=== PATIENT | female | born 1990 | race Caucasian/White ===

== ENCOUNTER 2017-03-05 23:27 | Emergency (ER) | payer SELFPAY ==
[~2017-03-05] VITALS: Ht 160 cm; Wt 68.0 kg
[2017-03-06] MEDS ORDERED: IBUPROFEN600 MG ORAL (00:05)
--- NOTE | 2017-03-06 00:06 | Emergency Room Report ---
History of Present Illness General Chief Complaint: Pain Source: Patient, EMS Present Illness HPI Is a 27-year-old female who is homeless. She presents with bilateral feet and leg pain. She said she been walking a lot and is hurting. Denies any fever chills denies any nausea vomiting. The paramedics it took her in today he said that he picked her up 2 days ago from [facility] for similar complaint. Patient denies any trauma. Denies any fever chills denies any nausea vomiting. She said that she is not . Allergies: Coded Allergies: No Known Allergies (Unverified , 03/05/17) Patient History Past Medical History: see triage record, old chart reviewed Past Surgical History: none Pertinent Family History: none Social History: Reports: smoking Last Menstrual Period: "2 months ago" Now: No Immunizations: other Reviewed Nursing Documentation: PMH: Agreed, PSxH: Agreed Nursing Documentation-PMH Past Medical History: No Stated History Review of Systems Eye: Denies: blurred vision, eye pain ENT: Denies: ear pain, nose congestion, throat swelling Respiratory: Denies: cough, shortness of breath Cardiovascular: Denies: chest pain, palpitations Gastrointestinal: Denies: abdominal pain, diarrhea, nausea, vomiting Musculoskeletal: Denies: back pain, joint pain Skin: Denies: rash Neurological: Denies: headache, numbness Endocrine: Denies: increased thirst, increased urine Hematologic/Lymphatic: Denies: easy bruising All Other Systems: negative except mentioned in HPI Physical Exam Vital Signs Date Time Temp Pulse Resp B/P Pulse Ox O2 Delivery O2 Flow Rate FiO2 03/05/17 23:25 97.5 73 16 108/65 98 Room Air vitals normal Sp02 EP Interpretation: reviewed, normal General Appearance: well appearing, no apparent distress, alert Head: normocephalic, atraumatic Eyes: bilateral eye EOMI, bilateral eye PERRL ENT: hearing grossly normal, normal pharynx Neck: full range of motion, supple, no meningismus Respiratory: chest non-tender, lungs clear, normal breath sounds Cardiovascular #1: regular rate, rhythm, no murmur Gastrointestinal: normal bowel sounds, non tender, no mass, no organomegaly, no bruit, non-distended Musculoskeletal: back normal, gait/station normal, normal range of motion Psychiatric: mood/affect normal Skin: warm/dry Medical Decision Making Diagnostic Impression: Primary Impression: Lower extremity pain, bilateral ER Course Patient presents with bilateral leg pain. She does want a place to sleep. I see no trauma. There is no evidence of infection. She's not having any pain when I palpate her lower extremity. No evidence of edema. No evidence of DVT. We'll discharge home. She does not want social service consult. She does not want to go to a custodial. Last Vital Signs Date Time Temp Pulse Resp B/P Pulse Ox O2 Delivery O2 Flow Rate FiO2 03/05/17 23:25 97.5 73 16 108/65 98 Room Air Status: improved Disposition: HOME, SELF-CARE Condition: Stable Scripts Ibuprofen* (MOTRIN*) 600 Mg Tablet 600 MG ORAL Q8H Y for For Pain, #30 TAB 0 Refills Prov: JAMEE CARLSON M.D. 03/06/17 Referrals: NOT CHOSEN IPA/,REFERRING (PCP) Patient Instructions: PAIN, Uncertain Cause (Acute) Additional Instructions: Follow up with your DrPako in 7 days. Return if symptom worsen. JAMEE CARLSON M.D. March 06, 2017 00:06
[2017-03-06 00:28] VITALS: BP 108/65
== END 2017-03-06 00:30 | disposition home or self-care (01) ==
LOC: EDBD 23:27 → EMR 23:52
DX: M79.605 Pain in left leg (principal); M79.604 Pain in right leg; F17.200 Nicotine dependence, unspecified, uncomplicated
CPT/HCPCS: 99283

== ENCOUNTER 2017-08-07 10:55 | Emergency (ER) | payer SELFPAY ==
[~2017-08-07] VITALS: Ht 165.1 cm; Wt 72.6 kg
[2017-08-07 10:55] VITALS: BP 136/89
[~2017-08-07 10:55] MED LIST: IBUPROFEN600 MG ORAL
--- NOTE | 2017-08-07 10:59 | Emergency Room Report ---
History of Present Illness General Chief Complaint: Abdominal Pain Source: Patient, EMS Present Illness Allergies: Coded Allergies: No Known Allergies (Unverified , 03/05/17) Patient History Last Menstrual Period: na Nursing Documentation-PMH Past Medical History: No History, Except For History Of Psychiatric Problem: Yes Physical Exam Vital Signs Date Time Temp Pulse Resp B/P (MAP) Pulse Ox O2 Delivery O2 Flow Rate FiO2 08/07/17 10:46 76 18 136/89 98 Room Air Medical Decision Making Diagnostic Impression: Primary Impression: eloped ER Course It was reported that upon arrival by paramedics Patient came off the embolus gurney and eloped out of the emergency room Patient was not seen and evaluated by myself Last Vital Signs Date Time Temp Pulse Resp B/P (MAP) Pulse Ox O2 Delivery O2 Flow Rate FiO2 08/07/17 10:46 76 18 136/89 98 Room Air Disposition: ELOPED Condition: Unknown CHANDA ALEMAN D.O. Aug 07, 2017 10:59
== END 2017-08-07 11:28 | disposition left against medical advice (07) ==
LOC: EMR 10:55 → EDBD 10:55 → EMR 11:28
DX: R10.9 Unspecified abdominal pain (principal)
CPT/HCPCS: 99281

== ENCOUNTER 2017-08-23 04:57 | Emergency (ER) | payer SELFPAY ==
[~2017-08-23] VITALS: Ht 167.6 cm; Wt 72.6 kg
[2017-08-23 04:55] VITALS: BP 116/74
--- NOTE | 2017-08-23 05:03 | Emergency Room Report ---
History of Present Illness General Chief Complaint: Abdominal Pain Source: Patient, EMS Present Illness HPI Patient brought by EMS for c/o abdominal pain. She gives a variable history but states it is now better. She told paramedics that she had 2 hours of abdominal cramping that she felt was related to early . She denied CP, NVD, dyspnea to them. She's been seen here for various complaints multiple times and usually refuses further evaluation. In February it was lower extremity pain. She came in 08/07/17 and eloped prior to evaluation. She had complained of abdominal pain at that time and stated she felt she was 2 months . [facility] know the patient and state this is a recurrent pattern. They allege "behavioral problems" in the past and record she is not delusional or suicidal. She refuses to answer other questions by me. She used a different name with [facility] (Kathy Gutierres). Allergies: Coded Allergies: No Known Allergies (Unverified , 03/05/17) Patient History Limited by: other Past Medical History: see triage record, old chart reviewed, psych hx Social History: Reports: smoking - allegedly recorded by prior ERMD Social History Narrative allegedly homeless Last Menstrual Period: jun 25 Now: Yes Reviewed Nursing Documentation: PMH: Agreed, PSxH: Agreed Nursing Documentation-PMH Past Medical History: No Stated History Review of Systems All Other Systems: limited Physical Exam Vital Signs Date Time Temp Pulse Resp B/P (MAP) Pulse Ox O2 Delivery O2 Flow Rate FiO2 08/23/17 04:53 97.7 112 18 116/74 98 Room Air Sp02 EP Interpretation: reviewed, normal General Appearance: well appearing, no apparent distress Head: normocephalic, atraumatic Eyes: bilateral eye normal inspection, bilateral eye PERRL ENT: hearing grossly normal, normal voice, moist mucus membranes Neck: full range of motion, supple Respiratory: no respiratory distress, speaking full sentences Gastrointestinal: other - refuses exam Musculoskeletal: digits/nails normal, gait/station normal, normal range of motion Neurologic: alert, normal gait, grossly normal - though slightly flat and refusing care Psychiatric: mood/affect normal, no suicidal/homicidal ideation Skin: no rash - patient fully dressed - exam of exposed areas Medical Decision Making Diagnostic Impression: Primary Impression: Abdominal pain Qualified Codes: R10.9 - Unspecified abdominal pain Additional Impression: AMA ER Course The patient alleges she is and had abdominal cramping which she states is resolved. DDx: ectopic, threatened miscarriage, UTI amongst others. Risk of leaving including discussed with patient. She refused to return to be evaluated as she states she feels better. Not delusional or suicidal. Status: improved Disposition: AGAINST MEDICAL ADVICE Condition: Improved Ricardo Stevens M.D. Aug 23, 2017 05:03
== END 2017-08-23 05:45 | disposition home or self-care (01) ==
LOC: EDBD 04:57 → EMR 05:20
DX: R10.9 Unspecified abdominal pain (principal)
CPT/HCPCS: 99283